=== PATIENT | female | born 1960 | race Caucasian/White ===

== ENCOUNTER → 2021-05-26 13:05 | Outpatient (BNVA) | payer OTHER, SELFPAY | PROVIDERS: PCP Internal Medicine; Visit Provider Internal Medicine ==

== ENCOUNTER → 2022-04-13 13:58 | Outpatient (BNVA) | payer OTHER, SELFPAY | PROVIDERS: PCP Internal Medicine; Visit Provider Dietitian, Registered | DX: E66.9 Obesity, unspecified (principal); Z68.33 Body mass index [BMI] 33.0-33.9, adult; Z71.3 Dietary counseling and surveillance | CPT/HCPCS: 97802 ==

== ENCOUNTER 2025-03-19 12:26 | Outpatient (REF) | payer OTHER, SELFPAY ==
[2025-03-19 14:43] LABS: Thyroid Stimulating Hormone 37.82 uIU/mL (0.32-4.0)
[2025-03-19 14:58] LABS: Folate 7.1 ng/mL (> or = 4.0); Vitamin B12 604 pg/mL (200-900)
== END 2025-03-19 12:27 | disposition home or self-care (01) ==
LOC: HO.LAB 12:26
PROVIDERS: PCP Internal Medicine; Visit Provider Psychiatry & Neurology Neurology
DX: G31.84 Mild cognitive impairment of uncertain or unknown etiology (principal); G43.009 Migraine without aura, not intractable, without status migrainosus
CPT/HCPCS: 36415; 82607; 82746; 84443; 99202

== ENCOUNTER 2025-03-19 12:26 | Outpatient (AMB) | payer OTHER, SELFPAY ==
--- OUTSIDE RECORDS SUMMARY | 2025-03-14 16:30 | XMS_ITS | Encounter Summary ---
Author Organization [employer] Address [address] [place] [address] Care Team Providers Care Business Objects Report Developer Name Role Phone Samantha Stern MD Primary Care Provider [phone] Reason for Visit * Consultation (Routine) - Authorized Specialty Diagnoses / Procedures Referred By Angeline mata Referred To Contact Physical Therapy Diagnoses Right ankle pain, unspecified chronicity Sprain of other ligament of right ankle, initial encounter April Da Silva PA [facility] [address] [place] [address] Phone: tel: fax: Referral ID Status Reason Start Date Expiration Date Visits Requested Visits Authorized [id number] Authorized Specialty Services Required 11/22/2024 11/22/2025 21 21 Encounter Details Date Type Department Care Team (Late st Contact Info) Description 03/14/2025 4:30 PM EDT Treatment [address] [phone] Estephanie Jacques, PT Right ankle pain, unspecified chronicity (Primary Dx); Sprain of other ligament of right ankle, initial encounter Social History Tobacco Use Types Packs/Day Years Used Date Smoking Tobacco: Never Smokeless Tobacco: Never Alcohol Use Standard Drinks/Week Comments Never 0 (1 standard drink = 0.6 oz pur e alcohol) Comments Unknown Sex and Gender Information Value Date Recorded Sex Assigned at Not on file Legal Sex Female 4:31 AM EST Gender Identity Not on file Sexual Orientation Not on file documented as of this encounter Progress Notes * Estephanie Jacques, PT - 03/14/2025 4:30 PM EDT [facility] - Outpatient PHYSICAL THERAPY DAILY TREATMENT NOTE - OP Date: 03/14/2025 Visit Number: [id number] Patient Name: Shelbi Omalley : 1960 Age: 65 y.o. Gender: female Diagnosis: ICD-10-CM ICD-9-CM 1. Right ankle pain, unspecified chronicity M25.571 719.47 2. Sprain of other ligament of right ankle, initial encounter S93.491A 845.09 Date of Onset/Surgery: 11/30/2024 Referring Provider: Kayli Zelaya,* Insurance: Payor: [employer] / Plan: [employer]ICA[employer] / Product Type: *No Product type* / Patient Identified by: Estephanie Jacques PT Language: Speaks and understands Kyrgyz as preferred language with no supervisor fiber locking required Medications: Medications Ordered Prior to Encounter[1] Allergies: is allergic to levofloxacin, lovastatin, trimethoprim, ciprofloxacin, liraglutide (weight loss), oxycodone-acetaminophen, penicillins, prozac [fluoxetine], sulfamethoxazole-trimethoprim, and codeine. Precautions: Low back pain with R lower extremity numbness, limited R knee ROM after TKA 02/2023, some memory loss Fall risk: patient did not bring assistive device, has had history of falls due to R leg weakness SUBJECTIVE Subjective Report: Patient notes continued pain in ankle/foot. Feels like the numbness in her toes is worse. She had to cancel previous sessions due to insurance reasons. Chart Reviewed: Yes Pain: 7/10, mostly numbness TREATMENT INTERVENTION: Nustep L4 x 5 min lower extremity and upper extremity Long sitting ankle PF yellow theraband 2 x 10 Long sitting toe AROM x 10 Long sitting ankle eversion yellow theraband 1 x 10- a lot of difficulty Long sitting ankle PROM all directions x 15 each Seated wobble board forward/back x 20, side to side x 20 Home exercise program- Seated ankle PF yellow theraband x 10 Seated ankle eversion yellow theraband x 10 Ankle circles Toe AROM ASSESSMENT/Response to Treatment Good no increase in pain with exercises. Ankle ROM still limited with DF, but better than initially. Some concern for increased numbness in toes and tripping that is occurring. Encouraged reaching out to physiatry as recommended by ortho. May also consider ankle brace is tripping persists. Patient Education: Education provided: continue home exercise program Education Provided To: Patient utilizing Explanation mode(s) of education Response to Education: Verbal Understanding PLAN POC Development/Review: No Change in the Plan of Care; Participants: Patient Interventions Time Entry: Modalities: Therapeutic procedures: Therapeutic Exercise Time Entry: 30 Total Treatment Time: 30 Documentation completed by Estephanie Jacques PT [1] Current Outpatient Medications on File Prior to Visit Medication Sig Dispense Refill albuterol HFA (PROAIR HFA ; PROVENTIL HFA ; VENTOLIN HFA) 90 mcg/actuation inhaler Inhale 2 puffs by mouth every 6 hours as needed. amLODIPine (NORVASC) 10 mg tablet Take 1 tablet (10 mg total) by mouth 1 (one) time each day. benzonatate (TESSALON) 100 mg capsule Take 1 capsule (100 mg total) by mouth 3 (three) times a day if needed for cough. 21 capsule 1 buPROPion XL (WELLBUTRIN XL) 150 mg 24 hr tablet Take 1 tablet (150 mg total) by mouth 1 (one) timeeach day. busPIRone (BUSPAR) 5 mg tablet Take 1 tablet (5 mg total) by mouth 2 (two) times a day. clindamycin (CLEOCIN T) 1 % gel Apply to the affected area twice daily for 30 days. 60 g 5 clonazePAM (KlonoPIN) 0.5 mg tablet Take 1 tablet (0.5 mg total) by mouth 1 (one) time each day if needed. cloNIDine (CATAPRES) 0.1 mg tablet Take 1 tablet (0.1 mg total) by mouth 1 (one) time each day if needed. DULoxetine (CYMBALTA) [address] capsule Take 1 capsule (20 mg total) by mouth 1 (one) time each day.Do not crush or chew. ezetimibe (ZETIA) 10 mg tablet Take 1 tablet (10 mg total) by mouth 1 (one) time each day. 30 tablet 2 famotidine (PEPCID) 40 mg tablet Take 1 tablet (40 mg total) by mouth 1 (one) time each day. 90 each 3 hydroCHLOROthiazide 12.5 mg tablet Take 1 tablet (12.5 mg total) by mouth 1 (one) time each day. 90each 2 ibuprofen (ADVIL,MOTRIN) 600 mg tablet Take 1 tablet (600 mg total) by mouth as needed. lamoTRIgine (LaMICtal) 25 mg tablet Take 1 tablet (25 mg total) by mouth. levothyroxine (SYNTHROID, LEVOTHROID) 175 mcg tablet Take 1 tablet (175 mcg total) by mouth 1 (one)time each day. 90 each 3 lisinopriL (PRINIVIL,ZESTRIL) 10 mg tablet Take 1 tablet (10 mg total) by mouth 1 (one) time each day. 30 tablet 3 metoprolol succinate (TOPROL-XL) 50 mg 24 hr tablet Take 1 tablet (50 mg total) by mouth 1 (one) time each day. 90 tablet 1 naloxone (NARCAN) 4 mg/0.1 mL nasal spray Administer 1 each (4 mg total) into affected nostril(s) if needed. senna-docusate (PERICOLACE) 8.6-50 mg per tablet Take 2 tablets by mouth 1 (one) time each day. traZODone (DESYREL) 100 mg tablet Take 1 tablet (100 mg total) by mouth at bedtime. at bedtime tretinoin (RETIN-A) 0.025 % cream Apply topically at bedtime. Mix a pea sized amount with moisturizer. 20 g 11 No current facility-administered medications on file prior to visit. documented in this encounter Plan of Treatment Upcoming Encounters Date Type Department Care Team (Late st Contact Info) Description 03/19/2025 4:30 PM EDT Treatment [address] [phone] Pedro Gonzales, LAP MACHINE OPERATOR 03/21/2025 4:30 PM EDT Treatment [address] [phone] Jan Lin, LAP MACHINE OPERATOR 03/26/2025 4:30 PM EDT Treatment [address] [phone] Pedro Gonzales, LAP MACHINE OPERATOR 04/09/2025 2:00 PM EDT Consult [facility] [place] [address] [facility] [address] [place] [phone] Claire Elkins MD 175 [place] [address] 04/16/2025 2:30 PM EST Office Visit Internal Medicine - [place] [address] [phone] Letty Powell, ANH [address] [address] 07/02/2025 1:40 PM EST Office Visit Gastroenterology - [place] [address] [phone] Pamela Farris PA [address] [address] documented as of this encounter Visit Diagnoses Diagnosis Right ankle pain, unspecified chronicity- Primary Sprain of other ligament of right ankle, initial encounter documented in this encounter Care Teams Business Objects Report Developer Relationship Specialty Start Date End Date Samantha Stern MD [address] [phone] PCP - General Internal Medicine 05/27/21 documented as of this encounter
--- NOTE | 2025-03-19 12:39 | MHC.OFFVIS ---
Intake Visit Reasons: memory loss Allergies Penicillins Allergy (Severe, Verified 05/26/21 13:24) throat closes acetaminophen (From Tylox) Adverse Reaction (Severe, Verified 05/26/21 13:24) n/v ciprofloxacin (From Cipro) Adverse Reaction (Severe, Verified 05/26/21 13:24) n/v codeine Adverse Reaction (Severe, Verified 05/26/21 13:24) n/v guaifenesin (From Robitussin) Adverse Reaction (Severe, Verified 05/26/21 13:24) n/v levofloxacin (From Levaquin) Adverse Reaction (Severe, Verified 05/26/21 13:24) n/v oxycodone Adverse Reaction (Severe, Verified 05/26/21 13:24) n/v sulfamethoxazole (From Bactrim) Adverse Reaction (Severe, Verified 05/26/21 13:24) n/v trimethoprim (From Bactrim) Adverse Reaction (Severe, Verified 05/26/21 13:24) n/v HPI Comments Details: The patient is a 65-year-old female presenting with memory problems and episodic headaches. Memory impairment has been a concern progressively for the past two years. The patient describes frequent forgetting of everyday tasks, reliance on a timer for medication adherence due to lapses in memory, and increased interpersonal challenges triggered by these memory lapses. She has previously sought medical advice about this issue, with no specific diagnosis or management result mentioned. Alongside memory issues, she experiences an episodic, sharp pain localized to the left side of the head that lasts about five minutes and is immediately followed by transient blurring of vision in the left eye. These episodes seem sporadic and not typically associated with common migraine characteristics. The conditions under which these symptoms occur have not been linked to any particular activity or trigger and often resolve quickly without intervention. She discusses feeling a heightened sense of depression steeped in the anxiety tied to her memory concerns, although no formal diagnosis of depression is provided in her record. Sleep disruptions have been noted but not explicitly linked to these symptoms. [facility] Medical History (Updated 03/19/25 @ 12:44 by Michael Rebolledo MD) Keloid scar of skin Swelling of joint of pelvic region or thigh Obesity Left thigh pain Review of Systems Const Details: - Neurological: Reports memory impairment, episodic headaches with visual disturbances. - Psychiatric: Reports depression, worsened by memory issues and episodic headaches. - Sleep: Reports disrupted sleep with awakening in the night. - Ophthalmic: Reports blurring of vision in the left eye during headache episodes. - Substance Use: Denies alcohol and tobacco use. Physical Exam Neuro Other: Mental Status: Alert and oriented to person, place, and time. Normal attention. Normal spontaneous speech, fluency, and comprehension. No obvious issues with mood and memory. Affect is appropriate. Cranial Nerves: CN II: Visual peck full to confrontation, visual acuity intact. CN III, IV, : Pupils equal, round, reactive to light and accommodation. Extraocular movements are normal. CN V: Facial sensation is normal. CN VII: Facial movements symmetrical. CN VIII: Hearing intact to bedside conversation is normal. CN IX, X: Palate elevates symmetrically. CN XI: Shoulder shrug and head turn symmetrical. CN XII: Tongue midline without atrophy or fasciculations. Motor: Bulk and tone normal in all extremities. No significant muscle weakness in arms and legs. No drift. Reflexes: Deep tendon reflexes 2+ and symmetric. Plantar response down-going bilaterally. Coordination: Uepmog-mm-nxqy and dmfq-kt-cqog testing normal. No dysmetria. Gait and Station: No obvious gait abnormality. No ataxia or instability. Extrapyramidal: Full facial expressions and blinking. No rigidity. Movements are appropriate with no tremor or abnormality. Speech: Normal; no dysarthria or tremor. Assessment & Plan Assessment & Plan (1) MCI (mild cognitive impairment): Code(s): G31.84 - Mild cognitive impairment of uncertain or unknown etiology Category: Medical (2) Migraine: Code(s): G43.909 - Migraine, unspecified, not intractable, without status migrainosus Category: Medical Qualifiers: Migraine type: migraine (< 15 days per month) without aura Status migrainosus presence: without status migrainosus Intractability: not intractable Qualified Code(s): G43.009 - Migraine without aura, not intractable, without status migrainosus Plan During our consultation, the patient and I discussed her concerns regarding memory impairment and episodic headaches. Given the history, I recommended starting a series of diagnostic tests, starting with blood tests to identify any vitamin or hormone deficiencies, followed by an MRI if results do not clarify the cause. We discussed the potential need for a neurologist's input based on findings. The patient understands the usage of MRI mainly for structural examination in light of her symptoms. In terms of her mood-related symptoms, I suggested exploring her prior use of Lexapro and considering alternative management for depression. We will follow up once test results are available for a reassessment of her condition and subsequent management. Orders: Orders Vitamin B12 and Folate Today G31.84 - Mild cognitive impairment of uncertain or unknown etiology Thyroid Stimulating Hormone Today G31.84 - Mild cognitive impairment of uncertain or unknown etiology MR head/brain wo con Today G31.84 - Mild cognitive impairment of uncertain or unknown etiology Coding Level of Care Code New Pt Level 4 (69001) Diagnoses MCI (mild cognitive impairment) G31.84 Migraine without aura and without status migrainosus, not intractable G43.009 Migraine type: migraine (< 15 days per month) without aura Status migrainosus presence: without status migrainosus Intractability: not intractable
--- OUTSIDE RECORDS SUMMARY | 2025-03-19 14:48 | XMS_ITS | Clinical Summary ---
Author Organization [facility] Address [address] [place] [address] Care Team Providers Care Artificial Plastic Eye Maker Name Role Phone Samantha Stern MD Primary Care Provider [phone] Allergies Active Allergy Reactions Criticality Noted Date Comments Acetaminophen Low 03/13/2015 Other reaction(s): NAUSEA / VOMITING TYLENOL WITH CODEINE ONLY SHE IS ABLE TO TAKE Tylenol BY IT SELF Ciprofloxacin 12/12/2016 Codeine Rash Low 02/16/2017 Other reaction(s): Not Indicated Fluoxetine Other (See Comments) 01/18/2023 Confusion, HTN Ibuprofen Medium 03/02/2013 Other reaction(s): denies Levofloxacin Medium 03/02/2013 Other reaction(s): VOMITING Liraglutide -Weight Management Other (See Comments) 07/09/2022 Abd bloating, abs pain Lovastatin Medium 06/09/2017 Other reaction(s): SKIN RASH Mirtazapine Other (See Comments) 01/18/2023 Confusion Other Low 12/09/2007 Other reaction(s): VIOXIN DENIES Oxycodone-Acetaminophen 04/07/2019 Other reaction(s): Not Indicated Penicillin G 04/07/2019 Prednisone Rash,Other (See Comments) Medium 06/09/2017 CONFUSION AND VOMITING Menthol Other (See Comments) 04/07/2019 Shaky after taking robitussin DM Sulfa Antibiotics Medium 03/02/2013 Other reaction(s): VOMITING Sulfamethoxazole Medium 06/09/2017 Other reaction(s): SKIN RASH Sulfamethoxazole-Trimetho prim 12/12/2016 Other reaction(s): Not Indicated Trimethoprim Medium 06/09/2017 Other reaction(s): SKIN RASH Medications Medication Sig Dispensed Refills Start Date End Date Status famotidine (PEPCID) 20 MG tablet Take 1 tablet (20 mg total) by mouth 2 (two) times a day as needed. 0 04/12/2022 Active ferrous sulfate 325 (65 FE) MG tablet Daily 0 06/09/2017 Active levothyroxine (SYNTHROID) tablet 175 mcg Take 1 tablet (175 mcg total) by mouth daily. 0 05/20/2022 Active losartan (COZAAR) 100 MG tablet Take 1 tablet (100 mg total) by mouth daily. 0 Active zolpidem (AMBIEN) 5 MG tablet Take 1 tablet (5 mg total) by mouth every night at bedtime as needed for sleep. 0 01/12/2023 Active Albuterol Sulfate (albuterol COMMON CANISTER) 108 (90 Base) MCG/ACT inhaler Every 6 Hours As Needed 0 04/21/2013 Active ezetimibe (ZETIA) tablet 10 mg Take 1 tablet (10 mg total) by mouth every night at bedtime. 0 04/21/2013 Active FLUTICASONE PROPIONATE, NASAL, NA spray or apply 1 spray inside Nose daily as needed. 0 04/21/2013 Active amLODIPine (NORVASC) tablet 5 mg Take 1 tablet (5 mg total) by mouth daily. 0 01/29/2023 Active clonazePAM (KlonoPIN) 0.5 MG tablet Take 2 tablets (1 mg total) by mouth 2 (two) times a day as needed. 0 01/29/2023 Active Naproxen Sodium (ALEVE PO) Take 220 mg by mouth daily as needed. 0 Active aspirin EC 81 MG tablet Take 1 tablet (81 mg total) by mouth daily. 60 tablet 0 04/01/2023 Active metoprolol succinate (TOPROL-XL) 24 hr tablet 50 mg daily. 0 05/03/2023 Active VITAMIN D PO Take 1 tablet by mouth daily. 0 Active ibuprofen 600 MG tablet Take 1 tablet (600 mg total) by mouth every 6 (six) hours as needed for pain. 0 Active omeprazole (PriLOSEC) 40 MG capsule Take 1 capsule (40 mg total) by mouth daily. 0 Active oxyCODONE (ROXICODONE) 5 MG immediate release tablet Take 1 tablet (5 mg total) by mouth every 4 (four) hours as needed for pain. 0 Active diclofenac (VOLTAREN) 75 MG EC tablet daily. 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 Asthma 11/10/2016 Peripheral neuropathy 11/02/2016 Depression 04/08/2016 Urinary incontinence 09/05/2014 Restless legs syndrome 02/19/2014 Pulmonary emphysema 10/24/2013 CHRISTOPHER (obstructive sleep apnea) 08/19/2010 Family History Medical History Relation Name Comments Cancer Brother Heart disease Brother Cancer Father Heart attack Father Heart disease Mother Heart failure Mother Cancer Sister 1 Diabetes Sister 1 Kidney failure Sister 2 Cancer Son stomach Relation Name Status Comments Brother (Age 39) Father (Age 96) heart rich ck Mother (Age 88) heart fail ure Sister 1 Sister 2 Sister 3 (Age 67) heart rich ck Son Social History Tobacco Use Types Packs/Day Years Used Date Smoking Tobacco: Never Smokeless Tobacco: Never Alcohol Use Standard Drinks/Week Comments No 0 (1 standard drink = 0.6 oz pur e alcohol) Sex and Gender Information Value Date Recorded Sex Assigned at Female 01/18/2023 3:58 PM EDT Gender Identity Female 01/18/2023 3:58 PM EDT Sexual Orientation Straight 02/18/2023 6: 47 AM EDT Job Start Date Occupation Industry Not on file Not on file Not on file Last Filed Vital Signs Vital Sign Reading Time Taken Comments Blood Pressure 189/97 05/10/2023 8:10 AM EST Pulse 85 05/10/2023 8:10 AM EST Temperature 36.1 C (97 F) 05/10/2023 8:10 AM EST Respiratory Rate 18 05/10/2023 8:10 AM EST Oxygen Saturation 98% 05/10/2023 8:00 AM EST Inhaled Oxygen Concentration - - Weight 83 kg (182 lb 15.7 oz) 05/10/2023 7:37 AM EST Height 160 cm (5' 3 ) 05/10/2023 7:37 AM EST Body Mass Index 32.41 05/10/2023 7:37 AM EST Plan of Treatment Health Maintenance Due Date Last Done Comments Hepatitis C Screening 1960 COVID-19 Vaccine (#1) 1967 Depression Screening 1974 BMI Counseling 01/16/1980 Preventative Health Evaluation 01/16/1980 DTap / Tdap / Td (1 - Tdap) 1981 Shingrix-Zoster Vaccine (1 o f 2) 1981 Cervical Cancer Screening (Pap Smear) 1983 Colon Cancer Screening (Colonoscopy) 2007 Breast Cancer Screening (Mammogram) 01/16/2012 Pneumococcal Vaccine (3 of 3 - PPSV23 or PCV20) 07/21/2016 04/02/2016, 07/21/2011 RSV Adult > 60+ Yrs or (1 - Risk 60-74 years 1-dose series) 2022 Influenza Vaccine (#1) 2025 02/22/2014 Hepatitis B Vaccines Aged Out No long er eligible based on patient's age to complete this topic RSV Ped < 20 months Aged Out No longe r eligible based on patient's age to complete this topic Medical Devices Implanted Type Area Competency Evaluated Nurse Aide Device Identifier Shelf Expiration Date Model / Serial / Lot Retaining Caney Implanted:Qty : 1 on 02/18/2023 by Sherif Chambers MD at [facility] and [facility] Total Joint Right: Knee [id number] 10/26/2027 / / [id number] Description:Ref: [id number] [place] Cr Knee Congruent Tb Inse Crng-Omls [id number] - [id number] Implanted:Qty : 1 on 02/18/2023 by Sherif Chambers MD at [facility] and Med Right: Knee [employer] 04/30/2026 [id number] / / [id number] Cement Bone Surg Simplex Radiopq Stry-How [id number] [id number] - [id number] Implanted:Qty : 1 on 02/18/2023 by Sherif Chambers MD at [facility] and [facility] Right: Knee [employer] [id number] 04/13/2025 6191--[id number] 0 / / [id number] Cement Bone Surg Simplex Radiopq Stry-Howm [id number] 4092 - [id number] Implanted:Qty : 1 on 02/18/2023 by Sherif Chambers MD at [facility] and [facility] Right: Knee [employer] [id number] 04/13/2025 6191- 0 / / [id number] C R Femur Non-Porous Sz 3 R Crng-[facility] [id number] 81 - [id number] Implanted:Qty : 1 on 02/18/2023 by Sherif Chambers MD at [facility] and [facility] Right: Knee [employer] [id number] 12/31/2027 [id number] / / [id number] Dovetail Tibial Tray Sz 2 R Crng-[id number] - [id number] Implanted:Qty : 1 on 02/18/2023 by Sherif Chambers MD at [facility] and [facility] Right: Knee [employer] [id number] 08/26/2027 [id number]-[id number] / / [id number] Advance Directives For more information, please contact: [phone] Latest Code Status on File Code Status Date Activated Date Inactivated Comments Full Code 05/10/2023 5:31 AM 05/10/2023 3:23 PM . Code Status History Code Status Date Activated Date Inactivated Comments Full Code 02/18/2023 9:47 AM 02/19/2023 8:51 PM This co de status was ascertained in the following way: discussion with patient . Full Code 02/18/2023 5:47 AM 02/18/2023 9:47 AM This co de status was ascertained in the following way: discussion with patient . Care Teams Artificial Plastic Eye Maker Relationship Specialty Start Date End Date Samantha Stern MD [address] [place] [phone] PCP - General Internal Medicine 07/10/21
--- OUTSIDE RECORDS SUMMARY | 2025-03-19 14:48 | XMS_ITS | Clinical Summary ---
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 Swimming Pool Maintenance Supervisor Name Role Phone Samantha Stern Primary Care Provider [phone] Allergies Active Allergy Reactions Criticality Noted Date Comments Ciprofloxacin Swelling High 10/14/2023 Codeine Sulfate Unknown Fluoxetine Other (see comments) 01/18/2023 Confusion, HTN Levofloxacin Unknown Lovastatin Rash Medium 06/09/2017 Other reaction(s): SKIN RASH Mirtazapine Other (see comments) 01/18/2023 Confusion Penicillins Unknown Chlorpheniramine-Pseudoe ph-Dm Unknown Sulfa (Sulfonamide Antibiotics) Rash Medium 03/02/2013 Other reaction(s): VOMITING Oxycodone-Acetaminophen Unknown Medications ezetimibe (ZETIA) 10 mg tablet Take 10 mg by mouth daily. 06/25/2016 Active oxyCODONE IR (ROXICODONE) 5 mg tablet Take 5-10 mg by mouth. EVERY 4 TO 6 HOURS NEEDED FOR PAIN. 03/09/2016 Active albuterol (PROAIR HFA) 90 mcg inhaler Inhale 2 puffs by mouth every 6 hours as needed. 08/04/2016 Active amLODIPine (NORVASC) 10 mg tablet Take 1 tablet by mouth once a day. Active aspirin 81 mg EC tablet Take 81 mg by mouth once a day. 04/01/2023 Active busPIRone (BUSPAR) 5 mg tablet 09/29/2023 Active famotidine (PEPCID) 20 mg tablet Take 1 tablet by mouth 2 times a day. Active labetaloL (NORMODYNE) 100 mg tablet Active metoprolol succinate XL (TOPROL XL) 50 mg tablet Take 1 tablet by mouth once a day. 06/25/2015 Active levothyroxine (SYNTHROID, LEVOTHROID) 175 mcg tablet Take 1 tablet by mouth once a day. Active traZODone (DESYREL) 100 mg tablet Take 1 tablet by mouth at bed time. 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 Pre-op testing 02/21/2016 Knee mass, left 01/17/2016 Family History Medical History Relation Name Comments Other Mother No pertinent fa anam history Relation Name Status Comments Mother Social History Tobacco Use Types Packs/Day Years Used Date Smoking Tobacco: Never Comments:: Comments Unknown Sex and Gender Information Value Date Recorded Sex Assigned at Female 10/20/2023 8:04 PM EDT Legal Sex Female 7:09 PM EDT Gender Identity Female 10/20/2023 8:04 PM EDT Sexual Orientation Straight 10/20/2023 8: 04 PM EDT Last Filed Vital Signs Vital Sign Reading Time Taken Comments Blood Pressure 123/72 01/20/2016 2:11 PM EDT Pulse 68 01/20/2016 2:11 PM EDT Temperature - - Respiratory Rate - - Oxygen Saturation - - Inhaled Oxygen Concentration - - Weight 80.3 kg (177 lb) 10/14/2023 2:55 PM EDT Height 157.5 cm (5' 2 ) 10/14/2023 2:55 PM EDT Body Mass Index 32.37 10/14/2023 2:55 PM EDT Plan of Treatment Health Maintenance Due Date Last Done Comments Cologuard 1962 Colon Cancer Screening 1962 Colonoscopy 1962 FOBT / Fit Test 1962 HIV Screening 1962 Hepatitis C Screening 1962 Sigmoidoscopy 1962 Pneumococcal Vaccine: 50+ Ye ars (1 of 2 - PCV) 1981 DTaP,Tdap,and Td Vaccines (1 - Tdap) 01/16/1984 Mammogram 2002 Zoster Vaccines (1 of 2) 01/16/2012 RSV Vaccine (60+ years old a nd patients) (1 - Risk 60-74 years 1-dose series) 2022 Alcohol/Substance Use Screening 06/14/2024 Depression Screening and Follow-Up 06/14/2024 Social Drivers of Health Betzaida ual Screening 06/14/2024 COVID-19 Vaccine (2023-2 5 season) 2025 Influenza Vaccine (#1) 2025 Hepatitis B Vaccines Aged Out No long er eligible based on patient's age to complete this topic Insurance Care Teams Swimming Pool Maintenance Supervisor Relationship Specialty Start Date End Date Samantha Stern [address] [place] [id number] PCP - General Internal Medicine 08/27/23
--- OUTSIDE RECORDS SUMMARY | 2025-03-19 14:48 | XMS_ITS ---
Author Name [facility] Organization Unknown History of Medication Use Medication Directions Dispensed Refills Start Date End Date Stat us famotidine (PEPCID) 40 mg tablet Take 1 tablet (40 mg total) by mouth 1 (one) time each day. 08/15/2024 active metoprolol succinate (TOPROL-XL) 50 mg 24 hr tablet Take 1 tablet (50 mg total) by mouth 1 (one) time each day. 08/15/2024 active clindamycin (CLEOCIN T) 1 % gel Apply to the affected area twice daily for 30 days. 07/19/2024 active losartan (COZAAR) 100 mg tablet TAKE 1 TABLET BY MOUTH DAILY 06/19/2024 active benzonatate (TESSALON) 100 mg capsule Take 1 capsule (100 mg total) by mouth 3 (three) times a day if needed for cough (Take 100mg by mouth 3 times daily for cough.). 06/06/2024 active ezetimibe (ZETIA) 10 mg tablet Take 1 tablet (10 mg total) by mouth 1 (one) time each day. 05/23/2024 active tretinoin (RETIN-A) 0.025 % cream Apply topically at bedtime. Mix a pea sized amount with moisturizer. 05/01/2024 active prednisone 10 mg tablet 3 tabs QD x 4 days, 2 tabs QD x 4 days, 1 tab QD x 4 days 09/03/2023 06/17/19 24 active Senna Plus 8.6 mg-50 mg tablet Take 2 tablets every day by oral route. 05/21/2023 12/22/19 25 active Senna Plus 8.6 mg-50 mg tablet Take 2 tablets every day by oral route. 05/21/2023 active oxycodone 5 mg tablet Take 1 tablet every 8 hours by oral route as needed. 03/19/2023 06/17/19 24 active hydrocodone 5 mg-acetaminophen 325 mg tablet Take 1 tablet every 6 hours by oral route. 02/25/2023 03/01/20 23 completed albuterol HFA (PROAIR HFA ; PROVENTIL HFA ; VENTOLIN HFA) 90 mcg/actuation inhaler Inhale 2 puffs by mouth every 6 hours as needed. 08/04/2016 active bupropion HCl XL 150 mg 24 hr tablet, extended release TAKE 1 TABLET BY MOUTH DAILY 12/22/19 25 active buspirone 5 mg tablet 12/22/19 25 completed aripiprazole 5 mg tablet TAKE 1/2 TABLET BY MOUTH DAILY 10/07/19 25 completed azithromycin 250 mg tablet 10/07/19 25 completed bupropion HCl 75 mg tablet TAKE 1 TABLET BY MOUTH EVERY MORNING 10/07/19 25 completed clonazepam 1 mg tablet 10/07/19 25 active doxycycline hyclate 100 mg tablet TAKE 1 TABLET BY MOUTH TWICE DAILY 10/07/19 25 completed duloxetine 20 mg capsule,delayed release TAKE 1 CAPSULE BY MOUTH DAILY 10/07/19 25 completed hydroxyzine HCl 25 mg tablet 10/07/19 25 completed amlodipine 5 mg tablet 02/25/20 24 active gabapentin 100 mg capsule TAKE 1 CAPSULE BY MOUTH THREE TIMES DAILY. MAY INCREASE TO 300 MG 3 TIMES DAILY OVER 10 DAYS TOLERATED 02/25/20 24 completed gabapentin 100 mg capsule TAKE 1 CAPSULE BY MOUTH THREE TIMES DAILY. MAY INCREASE TO 300 MG 3 TIMES DAILY OVER 10 DAYS TOLERATED 02/25/20 24 completed oxycodone 5 mg capsule TAKE 1 CAPSULE BY MOUTH FOUR TIMES DAILY FOR 7 DAYS 02/25/20 24 completed oxycodone 5 mg capsule TAKE 1 CAPSULE BY MOUTH FOUR TIMES DAILY FOR 7 DAYS 02/25/20 24 completed prednisone 10 mg tablet TAKE 3 TABLETS BY MOUTH EVERY DAY FOR 4 DAYS THEN TAKE 2 TABLETS BY MOUTH EVERY DAY FOR 4 DAYS THEN TAKE 1 TABLET BY MOUTH EVERY DAY FOR 4 DAYS 02/25/20 24 completed nitrofurantoin monohydrate/macrocrysta ls 100 mg capsule 09/03/19 24 active nitrofurantoin monohydrate/macrocrysta ls 100 mg capsule 09/03/19 24 completed meloxicam 7.5 mg tablet TAKE 1 TABLET BY MOUTH DAILY 07/29/19 24 completed meloxicam 7.5 mg tablet TAKE 1 TABLET BY MOUTH DAILY 02/15/20 24 active oxycodone 5 mg tablet Take 1 tablets every 4 hours as needed for pain. 06/17/19 active hydroxyzine HCl 10 mg tablet 05/21/20 completed hydroxyzine HCl 10 mg tablet 05/21/20 active lorazepam 0.5 mg tablet 05/21/20 completed lorazepam 0.5 mg tablet 05/21/20 completed Saxenda 3 mg/0.5 mL (18 mg/3 mL) subcutaneous pen injector 05/21/20 completed Saxenda 3 mg/0.5 mL (18 mg/3 mL) subcutaneous pen injector 05/21/20 active amlodipine 2.5 mg tablet 05/03/20 completed amlodipine 2.5 mg tablet 05/03/20 active baclofen 10 mg tablet 05/03/20 completed baclofen 10 mg tablet 05/03/20 completed benzonatate 100 mg capsule 05/03/20 completed benzonatate 100 mg capsule 05/03/20 completed bupropion HCl XL 150 mg 24 hr tablet, extended release 05/03/20 completed buspirone 5 mg tablet 05/03/20 active diclofenac 1 % topical gel 05/03/20 completed diclofenac 1 % topical gel 05/03/20 active diclofenac sodium 75 mg tablet,delayed release 05/03 completed diclofenac sodium 75 mg tablet,delayed release 05/03 active escitalopram 20 mg tablet 05/03/20 completed escitalopram 20 mg tablet 05/03/20 completed fluoxetine 10 mg capsule 05/03/20 completed fluoxetine 10 mg capsule 05/03/20 completed fluoxetine 20 mg capsule 05/03/20 23 completed fluoxetine 20 mg capsule 05/03/20 active losartan 50 mg tablet 05/03/20 active losartan 50 mg tablet 05/03/20 23 completed methocarbamol 750 mg tablet Take 1 tablet 3 times a day by oral route. 05/03/20 completed methocarbamol 750 mg tablet Take 1 tablet 3 times a day by oral route. 05/03/20 completed methylprednisolone 4 mg tablets in a dose pack 05/03 completed methylprednisolone 4 mg tablets in a dose pack 05/03 completed ropinirole 0.5 mg tablet 05/03/20 completed ropinirole 0.5 mg tablet 05/03/20 23 completed sertraline 50 mg tablet 05/03/20 23 active sertraline 50 mg tablet 05/03/20 23 completed tramadol 50 mg tablet TAKE 1 TO 2 TABLETS BY MOUTH EVERY 6 HOURS NEEDED FOR PAIN 05/03/20 23 completed tramadol 50 mg tablet TAKE 1 TO 2 TABLETS BY MOUTH EVERY 6 HOURS NEEDED FOR PAIN 05/03/20 23 completed Wegovy 0.25 mg/0.5 mL subcutaneous pen injector 05/03/20 23 completed Wegovy 0.25 mg/0.5 mL subcutaneous pen injector 05/03/20 23 active hydromorphone 2 mg tablet 03/01/20 23 completed hydromorphone 2 mg tablet 03/01/20 23 completed trazodone 50 mg tablet TAKE 1 TABLET BY MOUTH AT BEDTIME 03/01/20 23 active trazodone 50 mg tablet 03/01/20 23 completed hydroxyzine HCl 25 mg tablet 10/03/19 23 completed metoprolol succinate ER 50 mg tablet,extended release 24 hr 10/03/19 23 active mirtazapine 7.5 mg tablet 10/03/19 23 completed mirtazapine 7.5 mg tablet 10/03/19 23 completed Senna Plus 8.6 mg-50 mg tablet active prednisone 10 mg tablet active oxycodone 5 mg tablet active Narcan 4 mg/actuation nasal spray active albuterol sulfate 2.5 mg/3 mL (0.083 %) solution for nebulization USE 3 ML VIA NEBULIZER THREE TIMES DAILY active albuterol sulfate 2.5 mg/3 mL (0.083 %) solution for nebulization USE 3 ML VIA NEBULIZER THREE TIMES DAILY active albuterol sulfate HFA 90 mcg/actuation aerosol inhaler active albuterol sulfate HFA 90 mcg/actuation aerosol inhaler active amlodipine 10 mg tablet TAKE 1 TABLET BY MOUTH DAILY active amlodipine 10 mg tablet TAKE 1 TABLET BY MOUTH DAILY active amlodipine 5 mg tablet a ctive aripiprazole 5 mg tablet TAKE 1/2 TABLET BY MOUTH DAILY active azithromycin 250 mg tablet active bupropion HCl 75 mg tablet TAKE 1 TABLET BY MOUTH EVERY MORNING active clindamycin 1 % topical gel APPLY TOPICALLY TO THE AFFECTED AREA TWICE DAILY active clindamycin 1 % topical gel APPLY TOPICALLY TO THE AFFECTED AREA TWICE DAILY active clonazepam 0.5 mg tablet TAKE ONE TABLET BY MOUTH TWICE A DAY NEEDED active clonazepam 0.5 mg tablet TAKE ONE TABLET BY MOUTH TWICE A DAY NEEDED active clonazepam 1 mg tablet a ctive clonidine HCl 0.1 mg tablet TAKE 1 TABLET BY MOUTH DAILY NEEDED FOR ANXIETY active doxycycline hyclate 100 mg tablet TAKE 1 TABLET BY MOUTH TWICE DAILY active duloxetine 20 mg capsule,delayed release TAKE 1 CAPSULE BY MOUTH DAILY active duloxetine 30 mg capsule,delayed release TAKE 1 CAPSULE BY MOUTH DAILY active duloxetine 30 mg capsule,delayed release TAKE 1 CAPSULE BY MOUTH DAILY active ezetimibe 10 mg tablet a ctive ezetimibe 10 mg tablet a ctive famotidine 20 mg tablet TAKE 1 TABLET BY MOUTH TWICE DAILY active famotidine 20 mg tablet TAKE 1 TABLET BY MOUTH TWICE DAILY active ibuprofen 600 mg tablet Take 1 tablet 3 times a day by oral route as needed. active ibuprofen 600 mg tablet Take 1 tablet 3 times a day by oral route as needed. active labetalol 100 mg tablet active labetalol 100 mg tablet active lamotrigine 25 mg tablet active lamotrigine 25 mg tablet active levothyroxine 175 mcg tablet active levothyroxine 175 mcg tablet active losartan 100 mg tablet a ctive losartan 100 mg tablet a ctive metoprolol succinate ER 50 mg tablet,extended release 24 hr active naloxone 4 mg/actuation nasal spray take by nasal route as needed active naloxone 4 mg/actuation nasal spray take by nasal route as needed active trazodone 100 mg tablet TAKE 1 TABLET BY MOUTH EVERY NIGHT AT BEDTIME active trazodone 100 mg tablet TAKE 1 TABLET BY MOUTH EVERY NIGHT AT BEDTIME active tretinoin 0.025 % topical cream APPLY TOPICALLY AT BEDTIME. MIX PEA SIZED AMOUNT WITH MOISTURIZER active tretinoin 0.025 % topical cream APPLY TOPICALLY AT BEDTIME. MIX PEA SIZED AMOUNT WITH MOISTURIZER active Trintellix 5 mg tablet TAKE 1 TABLET BY MOUTH DAILY active zolpidem 5 mg tablet act fiona zolpidem 5 mg tablet act fiona busPIRone (BUSPAR) 5 mg tablet Take 1 tablet (5 mg total) by mouth 2 (two) times a day. active Allergies Allergen Reaction Severity Comment Documented Date Source Statu s LIRAGLUTIDE (WEIGHT LOSS) Abd bloating, abs pain ,Abd bloating, abs pain 07/09/2022 [facility] active TRIMETHOPRIM Other reaction(s): SKIN RASH 06/09/2017 [facility] active LOVASTATIN Other reaction(s): SKIN RASH 11/08/2012 [facility] active OXYCODONE-ACETAMINO PHEN Other reaction(s): Not Indicated 10/28/2010 [facility] active SULFAMETHOXAZOLE-TR IMETHOPRIM Other reaction(s): Not Indicated 06/25/2009 [facility] active CIPROFLOXACIN [facility] CODEINE RASH Other reaction(s): Not Indicated [facility] LEVOFLOXACIN Other reaction(s): VOMITING [facility] PERCOCET [facility] BACTRIM [facility] CIPRO [facility] LEXAPRO [facility] PENICILLINS [facility] PROZAC [facility] Problems Problem Status Onset Date Problem Type Date of Resoluti on Source Restless legs syndrome active 2014-02-19 ProblemAct [facility] Anemia active 2016-05-20 ProblemAct [facility] Anserine bursitis active 2014-02-19 ProblemAct [facility] GERD with esophagitis active 2016-09-10 ProblemAct [facility] Hypertension active 2018-03-15 ProblemAct [facility] Dysphagia active 2017-03-25 ProblemAct [facility] Chest pain active 2021-09-03 ProblemAct [facility] Tubular adenoma of colon active 2017-06-22 ProblemAct [facility] Iliotibial band syndrome of left side active 2014-02-19 ProblemAct [facility] Lower back pain active 2017-10-[address] [facility] Arthritis of knee, right active 2022-03-20 ProblemAct [facility] Pain, joint, shoulder active 2016-07-02 ProblemAct [facility] Trochanteric bursitis active 2014-02-19 ProblemAct [facility] Depression active 2016-04-08 ProblemAct [facility] Anxiety active 2018-03-15 ProblemAct [facility] Peripheral neuropathy active 2016-11-02 ProblemAct [facility] Fatigue active 2017-06-22 ProblemAct [facility] Subacute maxillary sinusitis active 2021-09-02 ProblemAct [facility] Internal hemorrhoids active 2013-06-05 ProblemAct [facility] Urinary urgency active 2014-09-[address] [facility] Primary osteoarthritis of both knees active 2020-01-08 ProblemAct [facility] Palpitations active 2021-09-02 ProblemAct [facility] Asthma active 2016-11-10 ProblemAct [facility] Leukopenia active 2016-09-28 ProblemAct [facility] Impaired fasting glucose active 2012-08-05 ProblemAct [facility] Cervical radiculopathy active 2015-01-11 ProblemAct [facility] Knee mass, left active 2016-01-17 [address] [facility] Vitamin D deficiency active 2013-02-16 ProblemAct [facility] Colitis active 2017-06-02 ProblemAct [facility] Flat foot active 2012-01-11 ProblemAct [facility] Hypothyroidism active 2017-10-28 ProblemAct [facility] Allergic rhinitis active 2016-04-02 ProblemAct [facility] Hyperlipidemia active 2017-01-20 ProblemAct [facility] Urinary incontinence active 2014-09-05 ProblemAct [facility] CHRISTOPHER (obstructive sleep apnea) active 2010-08-19 ProblemAct [facility] Lung nodule active 2015-10-24 ProblemAct [facility] Sprain of right ankle active 2023-05-27 ProblemAct [facility] Iliotibial band friction syndrome of right knee active 2022-10-02 ProblemAct [facility] Pain associated with prosthesis of knee joint active 2023-09-03 ProblemAct [facility] Arthrofibrosis of right knee active 2023-05-04 ProblemAct [facility] Injury of right knee active 2022-10-02 ProblemAct [facility] Arthritis of knee active 2022-12-18 ProblemAct [facility] Ankle pain active 2024-12-21 ProblemAct [facility] Postoperative pain active 2023-05-21 ProblemAct [facility] Pain of right ankle joint active 2023-06-17 ProblemAct [facility] Foot pain active 2023-05-21 ProblemAct [facility] Osteoarthritis of right knee joint active 2022-11-10 ProblemAct [facility] Pain of right knee joint active 2024-02-25 ProblemAct [facility] Tear of medial meniscus of knee active 2022-10-23 ProblemAct [facility] Sprain of right ankle active 2023-05-27 ProblemAct [facility] Immunizations Vaccine Date Source Lot Number Status Pneumococcal conjugate 13 va lent (Prevnar 13, PCV13) 2mo and older 04/02/2016 [facility] [id number] complet ed Influenza trivalent, with pr eservative (Fluzone; Afluria) 6mo and older 02/22/2014 [facility] completed Pneumococcal polysaccharide 23 valent (Pneumovax 23) 2yo and older 07/21/2011 [facility] [id number] com pleted Encounters Encounter Type Encounter Reason Primary Diagnosis Location Date Ambulatory [facility] 12/22/2024 Ambulatory [facility] 12/22/2024 Ambulatory [facility] 12/21/2024 Ambulatory [facility] 11/17/2024 Ambulatory [facility] 11/16/2024 Ambulatory [facility] 11/16/2024 Ambulatory [facility] 11/16/2024 Ambulatory [facility] 10/19/2024 Ambulatory [facility] 10/18/2024 Ambulatory [facility] 10/09/2024 Ambulatory [facility] 10/06/2024 Ambulatory [facility] 10/06/2024 Ambulatory [facility] 09/25/2024 Ambulatory [facility] 07/16/2024 Ambulatory [facility] 06/11/2024 Ambulatory [facility] 05/23/2024 Ambulatory [facility] 05/19/2024 Ambulatory [facility] 05/07/2024 Ambulatory [facility] 04/02/2024 Ambulatory [facility] 02/28/2024 Ambulatory [facility] 02/25/2024 Ambulatory [facility] 02/25/2024 Ambulatory [facility] 11/15/2023 Ambulatory [facility] 10/11/2023 Ambulatory [facility] 09/06/2023 Ambulatory [facility] 09/03/2023 Ambulatory [facility] 08/09/2023 Ambulatory [facility] 07/30/2023 Ambulatory [facility] 07/29/2023 Ambulatory [facility] 06/21/2023 Ambulatory [facility] 06/17/2023 Ambulatory [facility] 06/17/2023 Ambulatory [facility] 06/16/2023 Ambulatory [facility] 06/10/2023 Ambulatory [facility] 06/06/2023 Ambulatory [facility] 06/06/2023 Ambulatory [facility] 05/27/2023 Ambulatory [facility] 05/27/2023 Ambulatory [facility] 05/21/2023 Ambulatory [facility] 05/21/2023 Ambulatory [facility] 05/21/2023 Ambulatory [facility] 05/11/2023 Ambulatory Ankylosis, right knee Ankylosis, right knee [facility] 05/10/2023 Ambulatory [facility] 05/04/2023 Ambulatory [facility] 05/03/2023 Ambulatory [facility] 05/02/2023 Ambulatory [facility] 04/21/2023 Ambulatory [facility] 03/28/2023 Ambulatory [facility] 03/03/2023 Ambulatory [facility] 02/22/2023 Ambulatory Palpitations Palpitations [facility] 02/18/2023 Ambulatory [facility] 01/18/2023 Ambulatory [facility] 01/13/2023 Ambulatory [facility] 12/29/2022 Ambulatory [facility] 12/18/2022 Ambulatory [facility] 11/06/2022 Ambulatory [facility] 10/23/2022 Ambulatory [facility] 10/02/2022 Ambulatory [facility] 10/02/2022 Ambulatory [facility] 09/11/2022 Care Team Organization Name Specialty Phone Email Start Date End Da te [facility] 11/01/2024 [facility]
--- OUTSIDE RECORDS SUMMARY | 2025-03-19 14:48 | XMS_ITS | Clinical Summary ---
Author Organization 175 [facility] Address [address] [place] [address] Phone Care Team Providers Care Riveter [employer] Name Role Phone Samantha Stern MD Primary Care Provider [phone] Allergies Active Allergy Reactions Criticality Noted Date Comments Ciprofloxacin 06/25/2009 Codeine Rash Low 10/28/2010 Other reaction(s): Not Indicated Levofloxacin Medium 06/25/2009 Other reaction(s): VOMITING Liraglutide (Weight Loss) Other,Unknown 023 Abd bloating, abs pain Abd bloating, abs pain Lovastatin Medium 11/08/2012 Other reaction(s): SKIN RASH Oxycodone-Acetaminophen 10/28/2010 Other reaction(s): Not Indicated Penicillins 06/25/2009 Fluoxetine 12/11/2024 Sulfamethoxazole-Trimethop rim 06/25/2009 Other reaction(s): Not Indicated Trimethoprim Medium 06/09/2017 Other reaction(s): SKIN RASH Medications tretinoin (RETIN-A) 0.025 % creamIndications: Discoloration of skin of face Apply topically at bedtime. Mix a pea sized amount with moisturizer. 20 g 11 4 05/01/20 25 Active ezetimibe (ZETIA) 10 mg tablet Take 1 tablet (10 mg total) by mouth 1 (one) time each day. 30 tablet 2 4 Active clindamycin (CLEOCIN T) 1 % gelIndications:Ab scess Apply to the affected area twice daily for 30 days. 60 g 5 5 07/19/19 26 Active albuterol HFA (PROAIR HFA ; PROVENTIL HFA ; VENTOLIN HFA) 90 mcg/actuation inhaler Inhale 2 puffs by mouth every 6 hours as needed. 7 Active busPIRone (BUSPAR) 5 mg tablet Take 1 tablet (5 mg total) by mouth 2 (two) times a day. Active famotidine (PEPCID) 40 mg tablet Take 1 tablet (40 mg total) by mouth 1 (one) time each day. 90 each 3 5 08/16/19 26 Active DULoxetine (CYMBALTA) [address] capsule Take 1 capsule (20 mg total) by mouth 1 (one) time each day. Do not crush or chew. Active metoprolol succinate (TOPROL-XL) 50 mg 24 hr tablet Take 1 tablet (50 mg total) by mouth 1 (one) time each day. 90 tablet 1 5 Active hydroCHLOROthiazi de 12.5 mg tablet Take 1 tablet (12.5 mg total) by mouth 1 (one) time each day. 90 each 2 5 Active benzonatate (TESSALON) 100 mg capsule Take 1 capsule (100 mg total) by mouth 3 (three) times a day if needed for cough. 21 capsule 1 5 Active ibuprofen (ADVIL,MOTRIN) 600 mg tablet Take 1 tablet (600 mg total) by mouth as needed. Active amLODIPine (NORVASC) 10 mg tablet Take 1 tablet (10 mg total) by mouth 1 (one) time each day. 5 Active buPROPion XL (WELLBUTRIN XL) 150 mg 24 hr tablet Take 1 tablet (150 mg total) by mouth 1 (one) time each day. Active clonazePAM (KlonoPIN) 0.5 mg tablet Take 1 tablet (0.5 mg total) by mouth 1 (one) time each day if needed. 5 Active cloNIDine (CATAPRES) 0.1 mg tablet Take 1 tablet (0.1 mg total) by mouth 1 (one) time each day if needed. Active traZODone (DESYREL) 100 mg tablet Take 1 tablet (100 mg total) by mouth at bedtime. at bedtime 5 Active lamoTRIgine (LaMICtal) 25 mg tablet Take 1 tablet (25 mg total) by mouth. Active naloxone (NARCAN) 4 mg/0.1 mL nasal spray Administer 1 each (4 mg total) into affected nostril(s) if needed. Active senna-docusate (PERICOLACE) 8.6-50 mg per tablet Take 2 tablets by mouth 1 (one) time each day. 3 Active lisinopriL (PRINIVIL,ZESTRIL ) 10 mg tabletIndications :Primary hypertension Take 1 tablet (10 mg total) by mouth 1 (one) time each day. 30 tablet 3 5 Active levothyroxine (SYNTHROID, LEVOTHROID) 175 mcg tabletIndications :Hypothyroidism due to acquired atrophy of thyroid Take 1 tablet (175 mcg total) by mouth 1 (one) time each day. 90 each 3 5 Active Active Problems Problem Noted Date Diagnosed Date Sprain of right ankle 05/27/2023 Foot pain 05/21/2023 Tear of medial meniscus of knee 10/23/2022 Injury of right knee 10/02/2022 Arthritis of knee, right 03/20/2022 Chest pain 09/03/2021 Overview (03/20/2024): Last Assessment & Plan: Patient with history of atypical chest pain. She had a pharmacologic nuclear stress test in October 2021 with no areas of ischemia or infarct. Furthermore, she underwent a cardiac CTA in December 2021 that showed no evidence of hemodynamically significant CAD. Palpitations 09/02/2021 Overview (03/20/2024): Last Assessment & Plan: The patient has a history of palpitations. She completed a 48-hour Holter monitor which showed normal sinus rhythm with rare PACs and frequent PVCs with PVC burden of 0.6%. She continues on her metoprolol as prescribed. She does report that she does have a history of hypothyroidism and occasionally her TSH will be elevated and she continues to follow with endocrinology. She reports her palpitations have significantly improved after changing her antidepressant and seeing her mental health provider and she attributes her symptoms to anxiety. We reviewed the possible triggers of palpitations including caffeine consumption, alcohol consumption, cigarette smoking, inadequate sleeping patterns, and stress. At this point, the patient will attempt to avoid the usual triggers. She will notify me if her symptoms worsen or increase in frequency. Subacute maxillary sinusitis 09/02/2021 Primary osteoarthritis of both knees 01/08/2020 Hypertension 03/15/2018 Overview (03/20/2024): Last Assessment & Plan: The patient has a history of arterial hypertension. Her blood pressure is not well controlled today. She does report her blood pressures at home are elevated as well. She was recently seen at [facility] where she presented from her PCPs office due to hypertension with recommendations to follow-up with cardiology and her PCP. Currently, she is taking metoprolol and losartan 100 mg orally daily. Given that her blood pressures have not been well controlled on this current regimen, I will have the patient start amlodipine 5 mg orally daily and she will continue to monitor her blood pressures at home. We reviewed side effects. She will bring in a blood pressure log at her next office visit in 1 month. I have reviewed with the patient the importance of a heart healthy lifestyle which includes eating a low-fat low- salt diet, getting regular exercise, maintaining a healthy weight, not smoking, and following up with routine medical care. Anxiety 03/15/2018 Hypothyroidism 10/28/2017 Overview (03/20/2024): Thyroid with heterogeneous echotexture determined by ultrasound Lower back pain 10/28/2017 Tubular adenoma of colon 06/22/2017 Overview (03/20/2024): Colonoscopy- repeat 5 years Fatigue 06/22/2017 Colitis 06/02/2017 Dysphagia 03/25/2017 Hyperlipidemia 01/20/2017 Overview (03/20/2024): Last Assessment & Plan: The patient has a history of hyperlipidemia. She continues on ezetimibe 10 mg orally daily as she has been intolerant of statins in the past. We will continue current therapies. 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 - Within the chondroid matrix there are islands of chondrocyte proliferation. The chondrocytes are cytologically bland Lung nodule 10/24/2015 Mature T/NK-cell lymphomas, unspecified, unspecified site ([facility] V24, [facility] V28) 04/24/2015 Cervical radiculopathy 01/11/2015 Urinary incontinence 09/05/2014 Urinary urgency 09/05/2014 Restless legs syndrome 02/19/2014 Anserine bursitis 02/19/2014 Iliotibial band syndrome of left side 02/19/2014 Trochanteric bursitis 02/19/2014 Pulmonary emphysema ([facility] V24, [facility] V28) 0 10/24/2013 Internal hemorrhoids 06/05/2013 Vitamin D deficiency 02/16/2013 Impaired fasting glucose 08/05/2012 Flat foot 01/11/2012 CHRISTOPHER (obstructive sleep apnea) 08/19/2010 Encounters Date Type Department Care Team Description 03/14/2025 4:30 PM EDT Treatment [facility] [address] [phone] Estephanie Jacques, PT Right ankle pain, unspecified chronicity (Primary Dx); Sprain of other ligament of right ankle, initial encounter 03/08/2025 2:00 PM EDT Consult Orthopedic Surgery - [place] [address] [facility] [address] [place] [phone] Kayli Zelaya NP Primary osteoarthritis of both knees 02/13/2025 Telephone Gastroenterology [facility] 175 [facility] 175 [facility] [address] [place] [phone] Pamela Farris PA 01/30/2025 1:00 PM EDT Evaluation [facility] 175 [facility] [address] [place] [phone] Estephanie Jacques, PT Right ankle pain, unspecified chronicity (Primary Dx); Sprain of other ligament of right ankle, initial encounter 01/24/2025 2:30 PM EDT Office Visit Internal Medicine [address] [phone] Letty Powell NP Risk for falls (Primary Dx); Primary osteoarthritis of both knees; Osteoarthritis of both hips, unspecified osteoarthritis type; Chronic low back pain, unspecified back pain laterality, unspecified whether sciatica present; Primary hypertension; Hypothyroidism due to acquired atrophy of thyroid; Hyperlipidemia, unspecified hyperlipidemia type; Gastroesophageal reflux disease with esophagitis, unspecified whether hemorrhage; Status post right knee replacement; Depression, unspecified depression type; Memory loss; Left-sided headache; Heart palpitations 01/05/2025 Telephone Internal Medicine [address] [phone] Samantha Stern MD 12/27/2024 Telephone Internal Medicine [address] [phone] Samantha Stern MD 12/25/2024 1:15 PM EDT Office Visit Internal Medicine [address] [phone] Letty Powell NP Risk for falls (Primary Dx); Osteoarthritis of both hips, unspecified osteoarthritis type; Chronic low back pain, unspecified back pain laterality, unspecified whether sciatica present; Primary hypertension; Hypothyroidism, unspecified type; Hyperlipidemia, unspecified hyperlipidemia type; Gastroesophageal reflux disease with esophagitis, unspecified whether hemorrhage; Status post right knee replacement; Depression, unspecified depression type; Memory loss; Left-sided headache; Heart palpitations 12/25/2024 Telephone Internal Medicine [address] [phone] Samantha Stern MD from Last 3 Months Immunizations Immunization Administration Dates Next Due Influenza trivalent, with pr eservative (Fluzone; Afluria) 6mo and older 02/22/2014 Pneumococcal conjugate 13 va lent (Prevnar 13, PCV13) 2mo and older 04/02/2016 Pneumococcal polysaccharide 23 valent (Pneumovax 23) 2yo and older 07/21/2011 Surgical History Surgery Date Site/Laterality Comments HYSTERECTOMY PROCEDURE:HYSTERECTOMY SECTION PROCEDURE: SECTION;COMMENT:times 3 KNEE SURGERY Left PROCEDURE:KNEE SURGERY TONSILLECTOMY PROCEDURE:TONSILLECTOMY APPENDECTOMY PROCEDURE:APPENDECTOMY COLONOSCOPY PROCEDURE:COLONOSCOPY UPPER GASTROINTESTINAL ENDOSCOPY PROCEDURE:UPPER GASTROINTESTINAL ENDOSCOPY OTHER SURGICAL HISTORY Right PROCEDURE:implantable port;COMMENT:2019 for chemo and then removed 2020 TOTAL KNEE ARTHROPLASTY 02/18/2023 Right PROCEDURE:TOTAL KNEE ARTHROPLASTY;COMMENT:Procedure : REPLACEMENT TOTAL KNEE WITH NAVIGATION; Surgeon: Sherif Chambers MD; [facility] Service: Orthopedics; Laterality: Right; CHOLECYSTECTOMY PROCEDURE: HISTORICAL CHOLECYSTECTOMY HYSTERECTOMY PROCEDURE: HISTORICAL HYSTERECTOMY CHOLECYSTECTOMY PROCEDURE: OH LAPAROSCOPY SURG CHOLECYSTECTOMY APPENDECTOMY PROCEDURE: OH APPENDECTOMY TONSILLECTOMY ADENOIDECTOMY, BILATERAL MYRINGOTOMY AND TUBES PROCEDURE: OH TONSILLECTOMY & ADENOIDECTOMY <AGE 14 Medical History Medical History Date Comments Hypothyroidism DX:Hypothyroidis m Dysphagia DX:Dysphagia Polyneuropathy DX:Polyneuropath y Angiocentric T-cell lymphoma (CMS/HCC V28) DX:Angiocentric T-cell lymph feroz Anemia DX:Anemia Hypertension DX:Hypertension History of transfusion DX:Histor y of transfusion GERD (gastroesophageal reflu x disease) DX:GERD (gastroesophageal re flux disease) Sleep apnea DX:Sleep apnea Anxiety DX:Anxiety Depression DX:Depression History of claustrophobia DX:His tory of claustrophobia Iron deficiency anemia DX:Iron d eficiency anemia Abnormal finding on EKG 01/01/2023 DX:Abnor mal finding on EKG;COMMENT:ARIADNA CONDE sent patient to ED [facility] Abdominal pain 06/22/2017 DX:Abdominal rober n Allergic rhinitis 04/02/2016 DX:Allergic rh initis Anemia 05/20/2016 DX:Anemia Anserine bursitis 02/19/2014 DX:Anserine bu rsitis Anxiety 03/15/2018 DX:Anxiety Arthritis 01/28/2017 DX:Arthritis Asthma 11/10/2016 DX:Asthma Cervical radiculopathy 01/11/2015 DX:Cervic al radiculopathy Colitis 06/02/2017 DX:Colitis Depression 04/08/2016 DX:Depression Dysphagia 03/25/2017 DX:Dysphagia Dysuria 02/05/2014 DX:Dysuria Enthesopathy of ankle and tarsus 01/11/2012 DX:Enthesopathy of ankle and tarsus Flat foot 01/11/2012 DX:Flat foot Fatigue 06/22/2017 DX:Fatigue Herpes zoster 12/26/2015 DX:Herpes zoster Hyperlipidemia 01/20/2017 DX:Hyperlipidemi a Hypertension 03/15/2018 DX:Hypertension Hypoglycemia 04/30/2014 DX:Hypoglycemia Hypothyroidism 10/28/2017 DX:Hypothyroidis m Iliotibial band syndrome of left side 02/19/2014 DX:Iliotibial band syndrome of left side Impaired fasting glucose 08/05/2012 DX:Impa ired fasting glucose Internal hemorrhoids 06/05/2013 DX:Internal hemorrhoids Knee mass, left 01/17/2016 DX:Knee mass, le ft Leukopenia 09/28/2016 DX:Leukopenia Lower back pain 10/28/2017 DX:Lower back pa in Lower leg arthropathy 04/22/2017 DX:Lower l eg arthropathy Lumbar radiculopathy 10/28/2017 DX:Lumbar r adiculopathy Lung nodule 10/24/2015 DX:Lung nodule Mass of vallecula 03/07/2015 DX:Mass of lencho lecula Osteoarthritis, knee 02/19/2014 DX:Osteoart hritis, knee Peripheral neuropathy 11/02/2016 DX:Periphe ral neuropathy Pain, joint, shoulder 07/02/2016 DX:Pain, j oint, shoulder Pulmonary emphysema (CMS/HCC V24, CMS/HCC V28) 10/24/2013 DX:Pulmonary emphysema ([facility]) Restless legs syndrome 02/19/2014 DX:Restle ss legs syndrome Sciatica 09/10/2014 DX:Sciatica Trochanteric bursitis 02/19/2014 DX:Trochan teric bursitis Urinary incontinence 09/05/2014 DX:Urinary incontinence Urinary urgency 09/05/2014 DX:Urinary urgen cy Vitamin D deficiency 02/16/2013 DX:Vitamin D deficiency CHRISTOPHER (obstructive sleep apnea) 08/19/2010 DX :CHRISTOPHER (obstructive sleep apnea) History of lymphoma 04/02/2016 DX:History o f lymphoma; COMMENT: 05/2015 S/p radiation; oropharynx GERD with esophagitis 09/10/2016 DX:GERD wi th esophagitis Family History Medical History Relation Name Comments Cancer Brother 1 Heart disease Brother 1 Prostate cancer Brother 2 Cancer Father Heart attack Father Hypertension Father Other cancer Father Heart disease Mother Heart failure Mother Hypertension Mother Cancer Sister 1 Diabetes Sister 1 Kidney failure Sister 2 Stomach cancer Sister 4 passed age 62 Other: Kidney disease Sister 5 Other cancer Sister 6 Other: Cardiac disease Sister 6 Cancer Son stomach Relation Name Status Comments Brother 1 (Age 39) Brother 2 Brother 3 Father Mother Sister 1 Sister 2 Sister 3 (Age 67) heart rich ck Sister 4 Sister 5 Sister 6 Son Social History Tobacco Use Types Packs/Day Years Used Date Smoking Tobacco: Never Smokeless Tobacco: Never Tobacco Cessation:Counseling Given: Not Answered Alcohol Use Standard Drinks/Week Comments Never 0 (1 standard drink = 0.6 oz pur e alcohol) Comments Unknown Sex and Gender Information Value Date Recorded Sex Assigned at Not on file Legal Sex Female 4:31 AM EST Gender Identity Not on file Sexual Orientation Not on file Obstetrics History Last Filed Vital Signs Vital Sign Reading Time Taken Comments Blood Pressure 123/81 01/24/2025 2:29 PM EDT Pulse 78 01/24/2025 2:29 PM EDT Temperature 36.6 C (97.8 F) 01/24/2025 2:29 PM EDT Respiratory Rate 18 12/11/2024 2:00 PM EDT Oxygen Saturation 96% 01/24/2025 2:29 PM EDT Inhaled Oxygen Concentration - - Weight 82.6 kg (182 lb) 01/24/2025 2:29 PM EDT Height 160 cm (5' 3 ) 01/24/2025 2:29 PM EDT Body Mass Index 32.24 01/24/2025 2:29 PM EDT Plan of Treatment Upcoming Encounters Date Type Department Care Team (Late st Contact Info) Description 03/19/2025 4:30 PM EDT Treatment [facility] [address] [phone] Pedro Gonzales, GAS FITTER APPRENTICE 03/21/2025 4:30 PM EDT Treatment [facility] [address] [phone] Jan Lin, GAS FITTER APPRENTICE 03/26/2025 4:30 PM EDT Treatment [address] [phone] Pedro Gonzales, GAS FITTER APPRENTICE 04/09/2025 2:00 PM EDT Consult [facility] [place] [address] [facility] [address] [place] [phone] Claire Elkins MD 175 [place], [place] [phone] 04/16/2025 2:30 PM EST Office Visit Internal Medicine - [place] [address] [facility] [address] [place] [phone] Letty Powell NP [address] [address] 07/02/2025 1:40 PM EST Office Visit Gastroenterology - [place] [address] [place] [phone] Pamela Farris PA 175 [facility] [address] [place] [address] Health Maintenance Due Date Last Done Comments Colorectal Cancer Screening: Colonoscopy 1960 COVID-19 Vaccine (#1) 1967 DTaP,Tdap,and Td Vaccines (1 - Tdap) 1981 Zoster Vaccines (1 of 2) 1981 Cervical Cancer Screening: P ap Smear 1983 Pneumococcal Vaccine: 50+ Years (3 of 3 - PCV20 or PCV21) 07/21/2016 04/02/2016, 07/21/2011 RSV Immunization Adult Patients (1 - Risk 60-74 years 1-dose series) 2022 HIV Screening 05/21/2022 Hepatitis C Screening 05/21/2022 Social Influencers of Health Screening 05/21/2022 Breast Cancer Screening 08/13/2022 08/13/2020 Depression Screening 06/14/2024 Influenza Vaccine (#1) 2025 02/22/2014 Hypertension/CHF/CAD Annual BMP Blood Test 05/08/2025 05/08/2024, 06/16/2023 Cholesterol Screening (Lipid Panel) 05/08/2029 05/08/2024, 06/16/2023 HIB Vaccines Aged Out No longer eligi ble based on patient's age to complete this topic HPV Vaccines Aged Out No longer eligi ble based on patient's age to complete this topic Hepatitis A Vaccines Aged Out No long er eligible based on patient's age to complete this topic Hepatitis B Vaccines Aged Out No long er eligible based on patient's age to complete this topic IPV Vaccines Aged Out No longer eligi ble based on patient's age to complete this topic MMR Vaccines Aged Out No longer eligi ble based on patient's age to complete this topic Meningococcal ACWY Vaccine Aged Out N o longer eligible based on patient's age to complete this topic Meningococcal B Vaccine Aged Out No l onger eligible based on patient's age to complete this topic RSV Immunization Patients Under 20 months Aged Out No longer eligible b ased on patient's age to complete this topic Varicella Vaccines Aged Out No longer eligible based on patient's age to complete this topic Medical Devices Implanted Type Area [facility] Director Device Identifier Shelf Expiration Date Model / Serial / Lot Retaining Grady Implanted:Qty : 1 on 02/18/2023 by Sherif Chambers MD Joints Right: Knee [id number] 10/26/2027 / / [id number] Description:Ref: GENESIS-[address] [place] Cr Knee Congruent Tb Inse Crng-ls [id number] Implanted:Qty : 1 on 02/18/2023 by Sherif Chambers MD Right: Knee [employer]- [employer] 04/30/2026 [id number]-58695 / / [id number] Cement Bone Surg Simplex Radiopq Stry-How [id number] Implanted:Qty : 1 on 02/18/2023 by Sherif Chambers MD Right: Knee [employer] [id number] 04/13/2025 6190-06-14 0 / / [id number] Cement Bone Surg Simplex Radiopq Stry-Howm [id number] Implanted:Qty : 1 on 02/18/2023 by Sherif Chambers MD Right: Knee [employer] [id number] 04/13/2025 6190-06-14 0 / / [id number] C R Femur Non-Porous Sz 3 R Crng-Om [id number] Implanted:Qty : 1 on 02/18/2023 by Sherif Chambers MD Right: Knee [employer]- [employer] [id number] 12/31/2027 GENESIS-1103R / / [id number] Dovetail Tibial Tray Sz 2 R Crng-Om [id number] Implanted:Qty : 1 on 02/18/2023 by Sherif Chambers MD Right: Knee [employer]- [employer] [id number] 08/26/2027 GENESIS-2202R / / [id number] Procedures Procedure Name Priority Date/Time Associated Diagnosis Comments COMPREHENSIVE METABOLIC PANEL Routine 05/08/2024 10:17 AM EST Risk for falls LIPID PANEL WITH REFLEX TO DIRECT LDL Routine 05/08/2024 10:17 AM EST Risk for falls YASMANI SCREENING DIGITAL Routine 08/13/2020 5:33 PM EST Encounter for screening mammogram for malignant neoplasm of breast from Last 3 Months or Most Recently Relevant to Health Maintenance Results * (ABNORMAL) Lipid panel with reflex to direct LDL (05/08/2024 10:17 AM EST) Cholesterol 267(H) 0 - 200 mg/dL LAB CHEMISTRY METHOD 05/08/2024 5:34 PM EST [facility] Triglycerides 61 0 - 150 mg/dL LAB CHEMISTRY METHOD 05/08/2024 5:34 PM EST [facility] HDL 86 >=40 mg/dL LAB CHEMISTRY METHOD 05/08/2024 5:34 PM EST [facility] LDL Calculated 169(H) 0 - 100 mg/dL LAB CHEMISTRY METHOD 05/08/2024 5:34 PM EST [facility] VLDL Cholesterol Scott 12.2 mg/dL LAB CHEMISTRY METHOD 05/08/2024 5:34 PM EST [facility] Non HDL Chol. (LDL+VLDL) 181(H) <145 mg/dL LAB CHEMISTRY METHOD 05/08/2024 5:34 PM [facility] Chol/HDL Ratio 3.1 0.0 - 4.4 LAB CHEMISTRY METHOD 05/08/2024 5:34 PM [facility] Blood Venous blood specimen / Unknown Venipuncture / Unknown 05/08/2024 10:17 AM EST 05/08/2024 10:17 AM EST us Letty Powell NP LAB BLOOD ORDERABLES Final Resul t [facility] [address] [place] [address], [place] [phone] * (ABNORMAL) Comprehensive metabolic panel (05/08/2024 10:17 AM EST) Sodium 142 133 - 145 mmol/L LAB CHEMISTRY METHOD 05/08/2024 5:32 PM [facility] Potassium 4.2 3.5 - 5.5 mmol/L LAB CHEMISTRY METHOD 05/08/2024 5:32 PM [facility] Chloride 107 96 - 110 mmol/L LAB CHEMISTRY METHOD 05/08/2024 5:32 PM [facility] CO2 31 21 - 32 mmol/L LAB CHEMISTRY METHOD 05/08/2024 5:32 PM [facility] Anion Gap 4 3 - 11 LAB CHEMISTRY METHOD 05/08/2024 5:32 PM [facility] Glucose 121(H) 70 - 100 mg/dL LAB CHEMISTRY METHOD 05/08/2024 5:32 PM [facility] BUN 17 5 - 25 mg/dL LAB CHEMISTRY METHOD 05/08/2024 5:32 PM [facility] Creatinine 0.83 0.50 - 1.10 mg/dL LAB CHEMISTRY METHOD 05/08/2024 5:32 PM [facility] eGFR 80 >=60 mL/min/1. 73m2 LAB CHEMISTRY METHOD 05/08/2024 5:32 PM [facility] Comment:Calculation based on the Chronic Kidney Disease Epidemiology Collaboration (CKD-EPI) equation refit without adjustment for race. BUN/Creatinine Ratio 20.5 LAB CHEMISTRY METHOD 05/08/2024 5:32 PM [facility] Calcium 9.7 8.5 - 10.5 mg/dL LAB CHEMISTRY METHOD 05/08/2024 5:32 PM [facility] AST (SGOT) 20 10 - 42 unit/L LAB CHEMISTRY METHOD 05/08/2024 5:32 PM [facility] ALT (SGPT) 22 10 - 60 unit/L LAB CHEMISTRY METHOD 05/08/2024 5:32 PM [facility] Alkaline Phosphatase 111 42 - 121 unit/L LAB CHEMISTRY METHOD 05/08/2024 5:32 PM [facility] Total Protein 6.7 6.0 - 8.0 g/dL LAB CHEMISTRY METHOD 05/08/2024 5:32 PM [facility] Albumin 3.7 3.2 - 5.0 g/dL LAB CHEMISTRY METHOD 05/08/2024 5:32 PM [facility] Total Bilirubin 0.5 0.0 - 1.4 mg/dL LAB CHEMISTRY METHOD 05/08/2024 5:32 PM [facility] Blood Venous blood specimen / Unknown Venipuncture / Unknown 05/08/2024 10:17 AM EST 05/08/2024 10:17 AM EST us Letty Powell NP LAB BLOOD ORDERABLES Final Resul t [facility] [address] [place] [address], [place] [phone] * YASMANI SCREENING DIGITAL (08/13/2020 5:33 PM EST) Anatomical Region Laterality Modality Mammography 08/13/2020 2:48 PM EST Narrative 08/13/2020 5:33 PM EST [facility] Diagnostic Imaging Department [address] [place] [id number] Patient: SERAFIN OMALLEY Karina Beltrán/Age/Sex: 1960 - 60 - F Unit#: [id number] [facility] CLI Mnemonic/Ordering Site: [facility] Ordering Physician: PAMELA FARRIS Yasmani Screening Digital - 08/13/20 - 1600 INDICATION: SCREENING COMPARISON: [facility] and outside mammograms dating back to 11/03/2011 TECHNIQUE: CC and MLO views of the breasts were obtained, using full field digital mammography with 3D tomosynthesis views in the MLO projection. Computer aided detection with the Cisiv 7.2-H was employed. Patient reports sister with breast cancer diagnosed at age 59. FINDINGS: The breasts contain scattered fibroglandular tissues. No suspicious masses, suspicious microcalcifications, or areas of architectural distortion are identified. Rare benign-appearing breast and mild vascular type calcifications are present. There are no secondary signs of breast malignancy. Compared to the prior exam, no adverse interval change. IMPRESSION: No specific mammographic evidence of breast malignancy. Lack of an imaging correlate should not deter or delay biopsy of a clinically significant palpable finding. BI-RADS - Category 2 - Benign finding 3342F, 7025F Annual screening mammography is recommended. Patient entered into a reminder system with a target date for the next mammogram. ([id number] / [id number]) , [id number] Dictating Physician: PAUL OLMEDO MD Electronically Signed by: PAUL OLMEDO MD Dic Date/Time: 08/13/201729 Sign date/Time: 08/13/201732 Procedure Note Paul Olmedo MD - 06/02/2022 [facility] Diagnostic Imaging Department [address] [place] [id number] Patient: SERAFIN OMALLEY Karina /Age/Sex: 1960 - 60 - F Unit#: [id number] Location/Status: [facility] CLI Mnemonic/Ordering Site: [facility] Ordering Physician: PAMELA FARRIS Yasmani Screening Digital - 08/13/20 - 1601 INDICATION: SCREENING COMPARISON: [facility] and outside mammograms dating back to 11/03/2011 TECHNIQUE: CC and MLO views of the breasts were obtained, using full field digital mammography with 3D tomosynthesis views in the MLO projection. Computer aided detection with the Cisiv 7.2-H was employed. Patient reports sister with breast cancer diagnosed at age 59. FINDINGS: The breasts contain scattered fibroglandular tissues. No suspicious masses, suspicious microcalcifications, or areas ofarchitectural distortion are identified. Rare benign-appearing breast and mild vasculartype calcifications are present. There are no secondary signs of breastmalignancy. Compared to the prior exam, no adverse interval change. IMPRESSION: No specific mammographic evidence of breast malignancy. Lack of an imaging correlate should not deter or delay biopsy of aclinically significant palpable finding. BI-RADS - Category 2 - Benign finding 3342F, 7025F Annual screening mammography is recommended. Patient entered into a reminder system with a target date for the next mammogram. ([id number] / [id number]) , [id number] Dictating Physician: PAUL OLMEDO MD Electronically Signed by: PAUL OLMEDO MD Dic Date/Time: 08/13/20 173 Sign date/Time: 08/13/20 173 Pamela [facility]LEY IMG BI PROCEDURES Final Resul t from Last 3 Months or Most Recently Relevant to Health Maintenance Insurance [facility] [employer] Care Teams Riveter Pneumatic Relationship Specialty Start Date End Date Samantha Stern MD [address] [id number] PCP - General Internal Medicine 05/27/21
--- OUTSIDE RECORDS SUMMARY | 2025-03-19 14:48 | XMS_ITS | Clinical Summary ---
Author Organization 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 Name Role Phone Hussein Lopez MD Primary Care Provider [phone] Brayden Alba MD Unavailable [phone] Allergies Active Allergy Reactions Criticality Noted Date Comments Bactrim (Sulfamethoxazole-Trimethoprim) Rash Low 04/19/2015 Cipro (Ciprofloxacin) Rash Low 04/19/2015 Codeine Vomiting 04/19/2015 Levaquin (Levofloxacin) Rash Low 04/19/2015 Penicillins Shortness Of Breath High 04/19/2015 Percocet (Oxycodone-Acetaminophen) Vomiting 04/22/2015 Tilade (Nedocromil) 04/19/2015 Medications clonazePAM (KLONOPIN) 0.5 MG disintegrating tablet Take 0.5 mg by mouth 2 (two) times a day as needed for anxiety. Active escitalopram oxalate (LEXAPRO) 20 MG tablet Take 20 mg by mouth daily. Active metoprolol succinate (TOPROL-XL) 50 MG 24 hr tablet Take 50 mg by mouth daily. Active chlorhexidine (PERIDEX) 0.12 % solution Use as directed 15 mL in the mouth or throat 2 (two) times a day. Active ezetimibe (ZETIA) 10 mg tablet Take 10 mg by mouth daily. Active ipratropium-albuter ol (COMBIVENT) 18-103 mcg/actuation inhaler Inhale 2 puffs into the lungs every 6 (six) hours as needed for wheezing. Active famotidine (PEPCID) 20 MG tablet Take 20 mg by mouth 2 (two) times a day. Active predniSONE (DELTASONE) 10 MG tablet Take 10 mg by mouth 2 (two) times a day. Take 6 tabs a day for 2 days, then 5 tabs a day for 2 days, then 4 tabs a day for 2 days then 3 tabs a day for 2 days then 2 tabs a day for 2 days then 1 tab a day for 2 days. Active HYDROmorphone (DILAUDID) 2 MG tablet Take 2 mg by mouth every 6 (six) hours as needed for pain (specific location in comments). 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 Not on neftaly e 10/09/2022 Are you concerned about learning? Not on file 10/09/2022 No 10/09/2022 No 10/09/2022 Digital Access Answer Date Recorded No 11/09/2022 No 11/09/2022 No 11/09/2022 Reliable internet access at home? Not on file 11/09/2022 Device with a working camera? Not on file Comments Unknown Sex and Gender Information Value Date Recorded Sex Assigned at Not on file Legal Sex Female 9:22 AM EST Gender Identity Not on file Sexual Orientation Not on file Last Filed Vital Signs Vital Sign Reading Time Taken Comments Blood Pressure 139/77 04/23/2015 10:23 AM EST Pulse 63 04/23/2015 10:23 AM EST Temperature 36.3 C (97.3 F) 04/23/2015 10:23 AM EST Respiratory Rate 16 04/23/2015 10:23 AM EST Oxygen Saturation 98% 04/23/2015 10:23 AM EST Inhaled Oxygen Concentration - - Weight 76 kg (167 lb 8.8 oz) 04/23/2015 10:23 AM EST Height 155.6 cm (5' 1.26 ) 04/23/2015 10:[address] Body Mass Index 31.39 04/23/2015 10:23 AM EST Plan of Treatment Health Maintenance Due Date Last Done Comments Adult Td,Tdap Booster 1960 LIPID PANEL 1960 DEPRESSION SCREENING 1974 HEPATITIS C SCREENING 01/16/1980 HIV ONE-TIME SCREENING (18-6 5 YEARS) 01/16/1980 PNEUMOCOCCAL VACCINES (50+ y ears) (1 of 2 - PCV) 1981 ZOSTER VACCINES (1 of 2) 1981 PAP SMEAR 1983 MAMMOGRAM 2002 COLOGUARD 2007 COLONOSCOPY 2007 COLORECTAL CANCER SCREENING 2007 FIT TEST 2007 FOBT 2007 SIGMOIDOSCOPY 2007 VIRTUAL COLONOSCOPY 2007 RSV VACCINE (1 - Risk 60-74 years 1-dose series) 2022 INFLUENZA VACCINE (#1) 2025 02/22/2014 COVID-19 VACCINE (2 - 2024-2 6 season) 2025 09/10/2020 SMOKING STATUS SCREENING (On ce After 26 Yrs) Completed 04/24/2015 HEPATITIS A VACCINES Aged Out No long er eligible based on patient's age to complete this topic HIB VACCINES Aged Out No longer eligi ble based on patient's age to complete this topic MENINGOCOCCAL VACCINES (ACWY) Aged Out No longer eligible based on patient's age to complete this topic MENINGOCOCCAL VACCINES (B) Aged Out N o longer eligible based on patient's age to complete this topic Medical Devices Not on file Insurance HMO O O O O O O HMO HMO Care Teams Mine Exploration Engineer Relationship Specialty Start Date End Date Hussein Lopez MD [address] [place] [address] PCP - General Gastroenterology 04/16/15 Brayden Alba MD [address] [place] [address] [email or web address] Referring Physician Internal Medicine 09/09/15 Additional Source Comments The information contained in this document represents components of the legal health record. It is not the complete legal health record.[facility]
== END 2025-03-19 12:55 | disposition home or self-care (01) ==
LOC: HO.HSM 12:27
PROVIDERS: PCP Internal Medicine; Visit Provider Psychiatry & Neurology Neurology
DX: G31.84 Mild cognitive impairment of uncertain or unknown etiology (principal); G43.009 Migraine without aura, not intractable, without status migrainosus
CPT/HCPCS: 99204

== ENCOUNTER 2025-05-22 11:39 | Outpatient (AMB) | payer MEDICAID, SELFPAY ==
--- NOTE | 2025-05-22 11:43 | A.OFFVIS_ITS ---
Intake Visit Reasons: Memory loss Allergies Penicillins Allergy (Severe, Verified 05/26/21 13:24) throat closes acetaminophen (From Tylox) Adverse Reaction (Severe, Verified 05/26/21 13:24) n/v ciprofloxacin (From Cipro) Adverse Reaction (Severe, Verified 05/26/21 13:24) n/v codeine Adverse Reaction (Severe, Verified 05/26/21 13:24) n/v guaifenesin (From Robitussin) Adverse Reaction (Severe, Verified 05/26/21 13:24) n/v levofloxacin (From Levaquin) Adverse Reaction (Severe, Verified 05/26/21 13:24) n/v oxycodone Adverse Reaction (Severe, Verified 05/26/21 13:24) n/v sulfamethoxazole (From Bactrim) Adverse Reaction (Severe, Verified 05/26/21 13:24) n/v trimethoprim (From Bactrim) Adverse Reaction (Severe, Verified 05/26/21 13:24) n/v HPI Comments Details: The patient is a 65-year-old female presenting with memory problems and episodic headaches. Memory impairment has been a concern progressively for the past two years. The patient describes frequent forgetting of everyday tasks, reliance on a timer for medication adherence due to lapses in memory, and increased interpersonal challenges triggered by these memory lapses. She has previously sought medical advice about this issue, with no specific diagnosis or management result mentioned. Alongside memory issues, she experiences an episodic, sharp pain localized to the left side of the head that lasts about five minutes and is immediately followed by transient blurring of vision in the left eye. These episodes seem sporadic and not typically associated with common migraine characteristics. The conditions under which these symptoms occur have not been linked to any particular activity or trigger and often resolve quickly without intervention. She discusses feeling a heightened sense of depression steeped in the anxiety tied to her memory concerns, although no formal diagnosis of depression is provided in her record. Sleep disruptions have been noted but not explicitly linked to these symptoms. [facility] Medical History (Updated 03/19/25 @ 12:44 by Michael Rebolledo MD) Keloid scar of skin Swelling of joint of pelvic region or thigh Obesity Left thigh pain Review of Systems Narrative - Neurological: Reports memory impairment, episodic headaches with visual disturbances. - Psychiatric: Reports depression, worsened by memory issues and episodic headaches. - Sleep: Reports disrupted sleep with awakening in the night. - Ophthalmic: Reports blurring of vision in the left eye during headache episodes. - Substance Use: Denies alcohol and tobacco use. Physical Exam Neuro Other: Mental Status: Alert and oriented to person, place, and time. Normal attention. Normal spontaneous speech, fluency, and comprehension. Cranial Nerves: CN II: Visual peck full to confrontation, visual acuity intact. CN III, IV, : Pupils equal, round, reactive to light and accommodation. Extraocular movements are normal. CN V: Facial sensation is normal. CN VII: Facial movements symmetrical. CN VIII: Hearing intact to bedside conversation is normal. CN IX, X: Palate elevates symmetrically. CN XI: Shoulder shrug and head turn symmetrical. CN XII: Tongue midline without atrophy or fasciculations. Extrapyramidal: Full facial expressions and blinking. No rigidity. Movements are appropriate with no tremor or abnormality. Speech: Normal; no dysarthria or tremor. Results Reviewed Results Reviewed: Laboratory Tests 03/19/25 13:08 Vitamin B12 604 Folate 7.1 TSH 37.82 H Assessment & Plan Assessment & Plan (1) MCI (mild cognitive impairment): Code(s): G31.84 - Mild cognitive impairment of uncertain or unknown etiology Category: Medical (2) Migraine: Code(s): G43.909 - Migraine, unspecified, not intractable, without status migrainosus Category: Medical Qualifiers: Migraine type: migraine (< 15 days per month) without aura Status migrainosus presence: without status migrainosus Intractability: not intractable Qualified Code(s): G43.009 - Migraine without aura, not intractable, without status migrainosus Plan Impression: a: Hypothyroidism b: MCI c: Episodes of sudden headaches and confusion, ?seizure disorder Rec: a: EEG b: MRI brain Orders: Orders EEG Routine Today G40.909 - Epilepsy, unspecified, not intractable, without status epilepticus MR head/brain wo/w con Today G40.909 - Epilepsy, unspecified, not intractable, without status epilepticus Coding Level of Care Code Est Pt Level 3 (51538) Diagnoses MCI (mild cognitive impairment) G31.84 Migraine without aura and without status migrainosus, not intractable G43.009 Migraine type: migraine (< 15 days per month) without aura Status migrainosus presence: without status migrainosus Intractability: not intractable
== END 2025-05-22 11:51 | disposition home or self-care (01) ==
LOC: HO.HSM 11:40
PROVIDERS: PCP Internal Medicine; Visit Provider Psychiatry & Neurology Neurology
DX: G31.84 Mild cognitive impairment of uncertain or unknown etiology (principal); G43.009 Migraine without aura, not intractable, without status migrainosus
CPT/HCPCS: 99213

== ENCOUNTER → 2025-05-22 11:39 | Outpatient (BNVA) | payer OTHER, SELFPAY | PROVIDERS: PCP Internal Medicine; Visit Provider Psychiatry & Neurology Neurology | DX: G31.84 Mild cognitive impairment of uncertain or unknown etiology (principal); G43.009 Migraine without aura, not intractable, without status migrainosus | CPT/HCPCS: 99212 ==